=== PATIENT | male | born 1955 | race African-American/Black ===

== ENCOUNTER 2018-01-04 14:33 | Outpatient (CLI) | payer MEDICARE ==
[2018-01-04 16:36] LABS: #Basophils 0.1 thou/uL (0.0-0.2); #Eosinphils 0.3 thou/uL (0.0-0.7); #Lymphocytes 1.6 thou/uL (1.20-3.40); #Monocytes 0.8 thou/uL (0.11-0.59); #Neutrophils 4.5 thou/uL (1.40-6.50); %Basophils 1.1 % (0.0-1.0); %Eosinophils 3.8 % (0.0-10.0); %Lymphocytes 21.7 % (21.0-51.0); %Monocytes 11.1 % (0.0-10.0); %Neutrophils 62.4 % (42.0-75.0); Hemoglobin 12.1 g/dL (14.0-18.0); Mean Corpuscular HGB CONC 32.4 g/dL (32.0-36.0); Mean Corpuscular Hemoglobin 28.8 pg (27.0-31.0); Mean Corpuscular Volume 88.7 fl (80.0-94.0); Mean Platelet Volume 7.8 fL (7.4-10.4); Platelet Count 300 thou/uL (130-400); RBC Distribution Width 14.3 % (11.5-14.5); Red Blood Cell (RBC) Count 4.21 mill/uL (4.70-6.10); White Blood Cell (WBC) Count 7.2 thou/uL (4.8-10.8)
[2018-01-04 16:56] LABS: Anion Gap 16 mmol/L (10-20); BUN (Urea Nitrogen) 22 mg/dL (8.4-25.7); Calc. Creatinine Clearance 0 mL/min (70-130); Calcium 9.9 mg/dL (7.8-10.44); Carbon Dioxide 29 mmol/L (23-31); Chloride 96 mmol/L (98-107); Estimated GFR-MDRD 14; Glucose 77 mg/dL (80-115); Sodium 137 mmol/L (136-145)
--- NOTE | 2018-05-10 11:23 | EKG ---
Test Reason : Blood Pressure : / mmHG Vent. Rate : 073 BPM Atrial Rate : 073 BPM P-R Int : 190 ms QRS Dur : 108 ms QT Int : 410 ms P-R-T Axes : 069 268 067 degrees QTc Int : 451 ms Normal sinus rhythm Possible Left atrial enlargement Right superior axis deviation Incomplete right bundle branch block Right ventricular hypertrophy Left ventricular hypertrophy Abnormal ECG Confirmed by VALERIA DONALDSON MD ([id number]) on 05/10/2018 11:23:08 AM Referred By: SHAE Confirmed By:VALERIA DONALDSON MD
== END 2018-01-04 14:34 | disposition home or self-care (01) ==
LOC: LABBT 14:33
PROVIDERS: ATTEND Surgery
DX: Z01.812 Encounter for preprocedural laboratory examination (principal); N18.6 End stage renal disease; K42.9 Umbilical hernia without obstruction or gangrene
CPT/HCPCS: 80048; 85025; 93005; 93010

== ENCOUNTER 2018-01-10 08:23 | Day surgery (SDC) | payer MEDICARE ==
[2018-01-04 15:04] VITALS: BMI 24.0
[2018-01-10] MEDS ORDERED: CEFAZOLIN/Water 2 GM/20 ML SYRINGE ONE (10:42)
[2018-01-10] MEDS ORDERED: Lidocaine 1% PF 5 ML VIAL ONE (12:50)
[2018-01-10] MEDS ORDERED: Ondansetron PF 4 MG/2 ML Vial ONE ×2 (12:50→13:11)
[2018-01-10] MEDS ORDERED: Dexamethasone 20 MG/5 ML VIAL ONE (12:50)
[2018-01-10] MEDS ORDERED: PROPOFOL 200 MG/20 ML VIAL ONE (12:50)
[2018-01-10] MEDS ORDERED: Glycopyrrolate 0.2 MG/ML 5 ML SYRINGE ONE (12:50)
[2018-01-10] MEDS ORDERED: Heparin 10,000 UNITS/1 ML VIAL ONE (13:08)
[2018-01-10] MEDS ORDERED: Bupivacaine/Epinephrine 0.25% 30 ML VIAL ONE (13:08)
[2018-01-10] MEDS ORDERED: Fentanyl 100 MCG/2 ML VIAL ONE ×2 (13:11→15:24)
[2018-01-10] MEDS ORDERED: HYDROcodone/Acetaminophen 5/325 mg Tablet ONE (16:44)
--- NOTE | 2018-01-14 16:13 | PDOC.OP ---
Operative Note - Operative Note Operative Note: PROCEDURE: Laparoscopic peritoneal dialysis catheter placement and umbilical hernia repair with mesh. DATE OF PROCEDURE: 01/10/2018 SURGEON: Seng Abdullahi M.D. PREOPERATIVE DIAGNOSES: Umbilical hernia, end-stage renal failure POSTOPERATIVE DIAGNOSIS: Umbilical hernia, end-stage renal failure HISTORY: Patient with symptomatic umbilical hernia for which operative repair with mesh is recommended. PROCEDURE IN DETAIL: After informed consent was obtained and appropriate preoperative antibiotics were administered the patient was taken to the operating room and placed in the supine position. General anesthesia by laryngeal mask airway was administered and the abdomen was prepped and draped in the standard sterile fashion. Local anesthesia was infused the skin and subcutaneous tissue surrounding the umbilicus. A periumbilical incision was made and dissection carried down to the hernia sac which was dissected free of the overlying dermis and the surrounding subcutaneous tissues. The hernia was traced down to the fascia which was cleared circumferentially. The hernia sac was opened and a 5 mm trocar placed into the peritoneal cavity. There were no significant adhesions in the abdominal cavity. Local anesthesia was infused to the skin and subcutaneous tissues at the subcostal location and a trocar was placed at that location. The patient was placed in Trendelenburg and the small intestine easily was drawn up out of the pelvis. The patient was noted to have a deep sulcus adjacent to the rectum suitable for placement of the catheter and the omentum did not seem to reach down to the pelvis. The inferior edge of the posterior rectus sheath was identified and local anesthesia infused the skin and subcutaneous tissues overlying this location. An 8 mm trocar was tunneled superiorly medially and then down through the posterior rectus sheath near its inferior edge and the peritoneal dialysis catheter advanced through the trocar. The catheter was held in place with the inner cuff just inside the rectus sheath as the trocar was withdrawn. The end of the catheter was placed down into the rectal cul-de-sac and saline infused into the abdominal cavity. The catheter was placed to gravity and easily drained the fluid. The right upper quadrant trocar was then withdrawn and a 0 Vicryl suture on a GraNee needle used to close the fascial incision, but the suture was not tied down. The trocar was replaced at that location under direct laparoscopic vision. The umbilical trocar was then used to desufflate the abdomen and blunt digital dissection used to create a preperitoneal space for mesh placement. A 4.3 cm ventral X mesh was placed through the fascial defect and laparoscopically confirmed to be lying flat in the preperitoneal space. The fascial edges were then reapproximated with interrupted and [id number] Ethibond sutures incorporating the central strap into the closure. The sutures were secured and the excess strap trimmed down to the level of the fascia. The subcutaneous tissues were reapproximated with 3-0 Monocryl suture and the skin was closed with 4-0 subcuticular Monocryl suture. The gas was then desufflated through the right upper quadrant trocar which was then removed and the previously placed transfascial sutures secured. The laparoscopic incision was closed with 4-0 subcuticular Monocryl suture and the skin around the peritoneal dialysis catheter was snugged up with a 4-0 Monocryl subcuticular suture as well. Dermabond dressings were placed and once these were dry a cotton ball and Tegaderm dressing was placed at the umbilicus and a sterile gauze dressing at the PD catheter site.. The patient was extubated and taken to the recovery room in good condition. There were no complications. There were no specimens. Estimated blood loss was minimal.
== END 2018-01-10 17:45 | disposition home or self-care (01) ==
LOC: SDC 08:23
PROVIDERS: ATTEND Surgery
PROC: 0WUF4JZ Supplement Abdominal Wall with Synthetic Substitute, Percutaneous Endoscopic Approach (ICD-10-PCS; principal; 2018-01-10)
PROC: 0WHG43Z Insertion of Infusion Device into Peritoneal Cavity, Percutaneous Endoscopic Approach (ICD-10-PCS; 2018-01-10)
DX: K42.9 Umbilical hernia without obstruction or gangrene (principal); F17.210 Nicotine dependence, cigarettes, uncomplicated; I13.2 Hypertensive heart and chronic kidney disease with heart failure and with stage 5 chronic kidney disease, or end stage renal disease; N18.6 End stage renal disease; I50.9 Heart failure, unspecified; D63.1 Anemia in chronic kidney disease; Z79.82 Long term (current) use of aspirin; Z79.899 Other long term (current) drug therapy; Z91.048 Other nonmedicinal substance allergy status; Z99.2 Dependence on renal dialysis
CPT/HCPCS: 96374; J0131; J1100; J1644; J2001; J2405; J2704; J3010

== ENCOUNTER 2018-09-23 18:09 | Emergency (ER) | payer MEDICARE ==
[2018-09-23 18:56] LABS: #Basophils 0.1 thou/uL (0.0-0.2); #Eosinphils 0.1 thou/uL (0.0-0.7); #Lymphocytes 1.8 thou/uL (1.20-3.40); #Monocytes 0.6 thou/uL (0.11-0.59); #Neutrophils 7.7 thou/uL (1.40-6.50); %Basophils 0.7 % (0.0-1.0); %Eosinophils 0.5 % (0.0-10.0); %Lymphocytes 17.3 % (21.0-51.0); %Monocytes 5.8 % (0.0-10.0); %Neutrophils 75.7 % (42.0-75.0); Hemoglobin 11.8 g/dL (14.0-18.0); Mean Corpuscular HGB CONC 31.4 g/dL (32.0-36.0); Mean Corpuscular Hemoglobin 26.8 pg (27.0-31.0); Mean Corpuscular Volume 85.3 fL (78.0-98.0); Mean Platelet Volume 8.6 fL (7.4-10.4); Platelet Count 265 thou/uL (130-400); RBC Distribution Width 15.6 % (11.5-14.5); Red Blood Cell (RBC) Count 4.41 mill/uL (4.70-6.10); White Blood Cell (WBC) Count 10.2 thou/uL (4.8-10.8)
[2018-09-23 19:01] LABS: ALT (SGPT) 9 U/L (8-55); AST (SGOT) 9 U/L (5-34); Albumin 3.8 g/dL (3.4-4.8); Alkaline Phosphatase 76 U/L (40-150); Anion Gap 16 mmol/L (10-20); BUN (Urea Nitrogen) 93 mg/dL (8.4-25.7); Bilirubin, Total 0.4 mg/dL (0.2-1.2); Calc. Creatinine Clearance 0 mL/min (70-130); Calcium 7.9 mg/dL (7.8-10.44); Carbon Dioxide 26 mmol/L (23-31); Chloride 99 mmol/L (98-107); Estimated GFR-MDRD 6; Globulin 3.8 g/dL (2.4-3.5); Glucose 133 mg/dL (80-115); Lipase 95 U/L (8-78); Protein, Total 7.6 g/dL (5.8-8.1); Sodium 138 mmol/L (136-145)
--- NOTE | 2018-09-23 20:35 | ULT ---
RIGHT UPPER QUADRANT ULTRASOUND: 09/23/2018 PROVIDED CLINICAL HISTORY: Right upper quadrant pain. FINDINGS: The visualized portions of the pancreas and IVC appear normal. The liver demonstrates no evidence fo r mass or intrahepatic biliary ductal dilatation. The common duct is not dilated. The gallbladder d emonstrates no stones, wall thickening, or pericholecystic fluid. Sonographic Watkins sign is documen imani as negative. The right kidney appears echogenic and demonstrates hydronephrosis, moderate to sev ere. Free intraperitoneal fluid is seen, the etiology and significance of which are uncertain, but m ay reflect peritoneal dialysis. IMPRESSION: 1. Right-sided hydronephrosis. Consider CT if indicated. 2. Free intraperitoneal fluid, which could reflect the provided clinical history of peritoneal dialy sis. POS: [facility]
--- NOTE | 2018-09-23 22:30 | CT ---
CT ABDOMEN AND PELVIS WITHOUT CONTRAST: 09/23/2018 PROVIDED CLINICAL HISTORY: Abdominal pain. COMPARISON: No CT comparisons. FINDINGS: The visualized lung bases are free of significant opacity. There is right-sided hydronephrosis, as seen on recent ultrasound, with mild right hydroureter. The course of the right ureter is not entirely visualized due to being surrounded by fluid density within the lower abdomen and upper pelvis, related to free intraperitoneal fluid from the dialysis catheter . There is no evidence for a ureteral or bladder calculus. The urinary bladder is decompressed and not well evaluated. No evidence for renal calculi. The solid abdominal organs are suboptimally eval uated in the absence of IV contrast material but demonstrate an otherwise unremarkable, unenhanced CT appearance. There is no evidence for bowel obstruction. Free intraperitoneal fluid related to a peritoneal dialy sis catheter is seen. No evidence significant for intraperitoneal air or localized inflammatory fat stranding. Vascular calcifications are noted involving the abdominal aorta. The osseous structures demonstrate no concerning lytic or blastic lesions. IMPRESSION: 1. Right-sided hydronephrosis, the etiology of which is not certain on the basis of this study. The re is no evidence for ureteral or bladder calculus. 2. Chronic findings as above. POS: [facility]
[2018-09-24 10:24] LABS: Body Fluid Source Dialysate Fluid; Tube # EDTA
[2018-09-24 10:26] LABS: BF Color Colorless; BF RBC Count - Manual 0 /cumm; BF WBC/Nonhematics Ct. - Manua 1 /cumm; Clarity Clear (Clear)
== END 2018-09-23 22:35 | disposition home or self-care (01) ==
LOC: ERS 18:09
DX: R10.31 Right lower quadrant pain (principal); I11.0 Hypertensive heart disease with heart failure; I50.9 Heart failure, unspecified
CPT/HCPCS: 36415; 74176; 76705; 80053; 83605; 83690; 85025; 87040; 87070; 87205; 89051

== ENCOUNTER 2018-11-11 10:09 | Outpatient (CLI) | payer MEDICARE ==
[2018-11-11] MEDS ORDERED: Iopamidol 370 76% 100 ML VIAL ONE (10:42)
--- NOTE | 2018-11-11 13:37 | CT ---
CT OF THE ABDOMEN AND PELVIS WITH AND WITHOUT IV CONTRAST: INDICATION: History of unexplained hydronephrosis with right flank pain and renal failure. The patient is receiv ing peritoneal dialysis nightly. CONTRAST: 7 cc of Isovue 370. COMPARISON: CT of the abdomen and pelvis dated 09/23/2018. FINDINGS: Again seen is a peritoneal dialysis catheter within the right hemiabdomen. There is a mild amount of peritoneal dialysate within the abdomen as well as within the pelvis. Previously seen right sided hydronephrosis has resolved. There are multiple small cysts seen within both kidneys. No definite urothelial lesion is evident. There is wall thickening involving the blad rachel which is nonspecific. The prostate is enlarged measuring approximately 6.5 cm. There is a moderate amount of retained stoo l within the colon. There is sever vascular calcification involving the abdominopelvic vasculature. There is a small hiatal hernia. No focal hepatic lesion is evident. The pancreas, adrenal glands, a nd spleen appear within normal limits. There is advanced degenerative disk disease at L5-S1. There is mild diffuse osteopenia. IMPRESSION: 1. Resolution of the previously seen right-sided hydronephrosis. No renal or ureteral calculus evid ent. No gross urothelial lesion is noted. 2. Nonspecific wall thickening involving the bladder may reflect sequelae of chronic bladder outlet obstruction; however, cystitis is not entirely excluded. Recommend correlation. 3. Peritoneal dialysis catheter. 4. Multiple small subcentimeter cysts within both kidneys. 5. Hiatal hernia. 6. Mild amount of retained stool within the colon. POS: [facility]
== END 2018-11-11 10:10 | disposition home or self-care (01) ==
LOC: BICCT 10:09
PROVIDERS: ATTEND Urology
DX: N18.6 End stage renal disease (principal); N13.30 Unspecified hydronephrosis; N28.1 Cyst of kidney, acquired; K44.9 Diaphragmatic hernia without obstruction or gangrene; K59.00 Constipation, unspecified; N32.89 Other specified disorders of bladder; Z99.2 Dependence on renal dialysis
CPT/HCPCS: 74178; Q9967

== ENCOUNTER 2019-03-27 06:53 | Day surgery (SDC) | payer MEDICARE ==
[2019-03-26 12:06] VITALS: BMI 24.4
--- NOTE | 2019-03-27 11:10 | OP ---
DATE OF PROCEDURE: 03/27/2019 CRISIS SPECIALIST SURGEON: None. PROCEDURES: 1. Esophagogastroduodenoscopy, diagnostic. 2. Colonoscopy with snare polypectomy. INDICATIONS: 1. Anemia. 2. History of colon polyps, with last colonoscopy 3 years ago. 3. Prior history of H pylori gastritis and peptic ulcer disease. MEDICATIONS: See Anesthesia record. FINDINGS: After discussion of the risks, benefits, and alternatives of the procedure, informed consent was obtained and witnessed. Pre-endoscopic cardiopulmonary examination was satisfactory. Time-out was performed before sedation was achieved. Sedation was achieved with Anesthesia's assistance in the endoscopy unit. A Pentax adult upper endoscope was placed into the oropharynx and passed through the cricopharyngeus under direct visualization. The esophageal mucosa appeared normal throughout with a normal-appearing Z-line. The endoscope was advanced into the stomach. Forward and retroflexed views of the entire gastric mucosa were obtained. The gastric mucosa appears normal. The endoscope was advanced through the pylorus and into the first and second portions of the duodenum, which also appeared normal. The upper endoscope was completely withdrawn and the patient was repositioned. Digital rectal exam was performed, which was unremarkable. A Pentax adult colonoscope was inserted into the anus and passed forward to the cecum in the usual fashion. The cecal base was identified by the appendiceal orifice as well as the ileocecal valve. The terminal ileum was intubated and the ileal mucosa appeared normal. The colonoscope was slowly withdrawn in a gradual and circumferential manner with careful examination of the entire colonic mucosa. The quality of the prep was good. In the sigmoid colon, there was a single diminutive polyp measuring 2 mm in diameter. This was completely removed with cold snare and retrieved for pathology. The remainder of the colonic mucosa appeared completely normal. Retroflexion in the rectum showed no abnormalities. The colonoscope was completely withdrawn and the patient allowed to recover. The patient tolerated the procedure well. There were no immediate postprocedure complications. IMPRESSION: 1. Normal esophagogastroduodenoscopy. 2. 2-mm sigmoid colon polyp, completely removed with cold snare and retrieved for pathology. 3. Otherwise normal colonoscopy to the terminal ileum. RECOMMENDATIONS: 1. Follow up pathology on the sigmoid colon polyp. 2. Repeat colonoscopy for surveillance in 5 years. 3. Continue current medications including daily multivitamin with folic acid. We advised the patient to get at least 400 mcg of folic acid daily. Note, recent labs showed mixed iron studies, but low folic acid level. 4. Follow up in GI clinic as needed. Job ID: [id number]
[2019-03-27] MEDS ORDERED: Lidocaine 1% PF 5 ML VIAL ONE (13:04)
[2019-03-27] MEDS ORDERED: PROPOFOL 200 MG/20 ML VIAL ONE (13:04)
== END 2019-03-27 11:06 | disposition home or self-care (01) ==
LOC: SDC 06:53
PROVIDERS: ATTEND Internal Medicine
PROC: 0DJ08ZZ Inspection of Upper Intestinal Tract, Via Natural or Artificial Opening Endoscopic (ICD-10-PCS; principal; 2019-03-27)
PROC: 0DBN8ZX Excision of Sigmoid Colon, Via Natural or Artificial Opening Endoscopic, Diagnostic (ICD-10-PCS; 2019-03-27)
DX: D64.9 Anemia, unspecified (principal); K63.5 Polyp of colon; K21.9 Gastro-esophageal reflux disease without esophagitis; N18.6 End stage renal disease; I50.9 Heart failure, unspecified; Z86.010 Personal history of colon polyps; Z86.73 Personal history of transient ischemic attack (TIA), and cerebral infarction without residual deficits; Z79.82 Long term (current) use of aspirin; Z79.899 Other long term (current) drug therapy; Z91.010 Allergy to peanuts; Z91.011 Allergy to milk products; Z91.040 Latex allergy status; Z91.048 Other nonmedicinal substance allergy status; Z99.2 Dependence on renal dialysis
CPT/HCPCS: 88305; J2001; J2704

== ENCOUNTER 2020-02-23 07:15 | Outpatient (CLI) | payer MEDICARE, OTHER | END 2020-02-23 07:16 | disposition home or self-care (01) | LOC: LABBT 07:15 | PROVIDERS: ATTEND Ophthalmology Retina Specialist | DX: Z01.812 Encounter for preprocedural laboratory examination (principal); Z11.59 Encounter for screening for other viral diseases; H35.342 Macular cyst, hole, or pseudohole, left eye; H54.7 Unspecified visual loss | CPT/HCPCS: 87635; U0003 ==

== ENCOUNTER → 2020-02-26 | Day surgery (SDC) | payer MEDICARE ==
[2020-02-19 14:28] VITALS: BMI 24.4
[~2020-02-26] MED LIST: Bupivacaine PF 0.75% SDV 10 ML ONE; CEFAZOLIN 1 GM VIAL ONE; Cyclopentolate 1% Opth Drop 2 ML BOT ONE; Fentanyl 100 MCG/2 ML VIAL ONE; Fluorouracil 100 MG, Enoxaparin Sodium 25 MG, EPINEPHrine 0.3 MG in Ophthalmic Irrigati... IRR SCH; Indocyanine Green 25 MG/10 ML VIAL ONE; Lidocaine 1% PF 5 ML VIAL ONE; Lidocaine 4% PF 5 ML AMP ONE; Midazolam HCl 2 mg/2 ml Vial ONE; PROPOFOL 20 ML ONE; PROPOFOL 200 MG/20 ML VIAL ONE; Phenylephrine 2.5% Ophth Soln 5 ML BOT ONE; Tobramycin/Dexamethasone Ophth Oint 3.5 GM TUBE ONE; Triamcinolone 40 MG/ML VIAL ONE
--- NOTE | 2020-02-27 12:39 | OP ---
DATE OF PROCEDURE: 02/26/2020 PREOPERATIVE DIAGNOSIS: Macular hole, left eye. POSTOPERATIVE DIAGNOSIS: Macular hole, left eye. PROCEDURES: Pars plana vitrectomy; internal limiting membrane peel, left eye. ANESTHESIA: Local with monitored anesthesia care. DESCRIPTION OF PROCEDURE: The patient was identified in the preoperative holding area. Appropriate informed consent for the planned surgical procedure on the left eye had been obtained. The patient was transported to the operative suite. Appropriate cardiopulmonary monitoring was established. Local anesthesia obtained using retrobulbar modified van Lint lid block using 50:50 mixture of 4% lidocaine and 0.75% bupivacaine. The patient was prepped in usual sterile manner for ophthalmic surgery of left eye. Lid speculum was placed in left eye. A 27-gauge trocar was placed in conjunctiva and sclera superotemporally, inferotemporally, and supranasally. Infusion line was placed inferotemporally. Light pipe vitreous cutter was inserted to the eye. Core vitrectomy was performed. Posterior hyaloid face was elevated, peeled across the macula. Indocyanine green dye was infused on the posterior pole identifying the internal limiting membrane. This was elevated and peeled in multiple fragments using end-gripping forceps. Indirect ophthalmoscopy was used to exam the retina 360 degrees. No holes, breaks, or tears were identified. Complete air-fluid exchange was performed and 10 minutes being left for fluid to drain posteriorly. 15% of propane gas was infused into the eye. Trocars were removed. Eye was noted to retain pressure well. Retrobulbar Kenalog and sequential Ancef were placed. Antibiotic ointment was placed. Eye was patched and shielded. The patient was taken to postop recovery unit in good condition, having suffered no immediate perioperative complications. The patient was instructed to keep patch and shield on. Avoid flat on back positioning. Avoid lifting or bending. Followup appointment with Dr. Yo. Job ID: [id number]
== END | disposition home or self-care (01) ==
LOC: SDC 10:56
PROVIDERS: ATTEND Ophthalmology Retina Specialist
PROC: 08T53ZZ Resection of Left Vitreous, Percutaneous Approach (ICD-10-PCS; principal; 2020-02-26)
PROC: 08NF3ZZ Release Left Retina, Percutaneous Approach (ICD-10-PCS; 2020-02-26)
DX: H35.342 Macular cyst, hole, or pseudohole, left eye (principal); Z79.899 Other long term (current) drug therapy; Z91.048 Other nonmedicinal substance allergy status
CPT/HCPCS: 67025; J0171; J0690; J1650; J2001; J2250; J2704; J3010; J3301; J3490; J9190

== ENCOUNTER 2020-05-21 15:16 | Outpatient (CLI) | payer MEDICARE ==
--- NOTE | 2020-05-21 15:50 | RAD ---
Radiograph left hip 2 views: HISTORY: 64-year-old male with left hip pain FINDINGS: No fracture or dislocation. Femoral head contour maintained. No subcapital or acetabular osteophytes. No erosions. No high-grade DJD of the left SI joint. IMPRESSION: Negative
== END 2020-05-21 15:17 | disposition home or self-care (01) ==
LOC: BICRAD 15:16
PROVIDERS: ATTEND Internal Medicine Nephrology
DX: M25.552 Pain in left hip (principal)

== ENCOUNTER 2021-01-25 16:18 | Outpatient (CLI) | payer MEDICARE | END 2021-01-25 16:19 | disposition home or self-care (01) | LOC: BICRAD 16:18 | PROVIDERS: ATTEND Nurse Practitioner Family | DX: R06.02 Shortness of breath (principal) | CPT/HCPCS: 71046 ==

== ENCOUNTER 2021-05-10 11:09 | Inpatient (IN) | payer MEDICARE ==
[2021-05-10 12:23] LABS: #Eosinphils 0.1 thou/uL (0.0-0.7); #Lymphocytes 1.4 thou/uL (1.20-3.40); #Neutrophils 16.2 thou/uL (1.40-6.50); %Basophils 0.2 % (0.0-1.0); %Eosinophils 0.4 % (0.0-10.0); %Lymphocytes 6.9 % (21.0-51.0); %Monocytes 10.1 % (0.0-10.0); %Neutrophils 82.5 % (42.0-75.0); Hemoglobin 10.6 g/dL (14.0-18.0); Mean Corpuscular HGB CONC 31.7 g/dL (32.0-36.0); Mean Corpuscular Volume 85.2 fL (78.0-98.0); Mean Platelet Volume 8.1 fL (7.4-10.4); Platelet Count 286 thou/uL (130-400); RBC Distribution Width 16.6 % (11.5-14.5); Red Blood Cell (RBC) Count 3.91 mill/uL (4.70-6.10); White Blood Cell (WBC) Count 19.7 thou/uL (4.8-10.8)
[2021-05-10 12:42] LABS: ALT (SGPT) Less than 7 U/L (8-55); AST (SGOT) 6 U/L (5-34); Albumin 3.2 g/dL (3.4-4.8); Alkaline Phosphatase 64 U/L (40-110); Anion Gap 20 mmol/L (10-20); BUN (Urea Nitrogen) 73 mg/dL (8.4-25.7); Bilirubin, Total 0.5 mg/dL (0.2-1.2); Calc. Creatinine Clearance 0 mL/min (70-130); Calcium 9.3 mg/dL (7.8-10.44); Carbon Dioxide 27 mmol/L (23-31); Chloride 90 mmol/L (98-107); Globulin 3.9 g/dL (2.4-3.5); Glucose 91 mg/dL (80-115); Potassium 4.6 mmol/L (3.5-5.1); Protein, Total 7.1 g/dL (5.8-8.1); Sodium 132 mmol/L (136-145)
[2021-05-10] MEDS ORDERED: cefTRIAXone\\ROCEPHIN 2 GM VIAL ONE (13:05)
[2021-05-10] MEDS ORDERED: Famotidine 20 MG TAB PO SCH (13:30)
[2021-05-10] MEDS ORDERED: Ondansetron ODT 4 MG TAB PO PRN (13:30)
[2021-05-10] MEDS ORDERED: Senokot S 8.6-50 MG TAB PO PRN (13:30)
[2021-05-10] MEDS ORDERED: Acetaminophen 325 MG TAB PO PRN (13:30)
[2021-05-10 15:57] LABS: SARS-CoV-2 NAA Rapid Test Not Detected (NotDetected)
[2021-05-10] MEDS ORDERED: CEFEPIME FS SCH (19:30)
[2021-05-10] MEDS ORDERED: ADMIXTURE FEE CHEMO FS SCH ×2 (19:30→20:30)
[2021-05-10] MEDS ORDERED: VANCOMYCIN HCL FS SCH ×2 (19:30→20:30)
[2021-05-10] MEDS ORDERED: GENTAMICIN FS SCH (20:30)
[2021-05-10 23:00] LABS: RBC Count-Automated (BF) 0 /cu.mm; WBC/Nucleated-Auto (BF) 333 uL
[2021-05-10 23:23] LABS: Body Fluid Source Peritoneal Fluid; Tube # EDTA
[2021-05-10 23:25] LABS: BF Color Colorless; Clarity Clear (Clear)
[2021-05-10 23:34] LABS: BF Segmented Neutrophils 13 %; Cell Count Non Hematic 86 %; Eosinophils 1 %
[2021-05-11 00:27] VITALS: BMI 27.8
[2021-05-11 06:07] LABS: Hemoglobin 10.5 g/dL (14.0-18.0); Mean Corpuscular HGB CONC 32.8 g/dL (32.0-36.0); Mean Corpuscular Hemoglobin 27.8 pg (27.0-31.0); Mean Corpuscular Volume 84.8 fL (78.0-98.0); Mean Platelet Volume 8.4 fL (7.4-10.4); Platelet Count 283 thou/uL (130-400); RBC Distribution Width 16.6 % (11.5-14.5); Red Blood Cell (RBC) Count 3.77 mill/uL (4.70-6.10); White Blood Cell (WBC) Count 20.2 thou/uL (4.8-10.8)
[2021-05-11 06:27] LABS: Albumin 2.9 g/dL (3.4-4.8); Anion Gap 21 mmol/L (10-20); BUN (Urea Nitrogen) 79 mg/dL (8.4-25.7); BUN/Creatinine Ratio 3.91; Calc. Creatinine Clearance 5 mL/min (70-130); Calcium 9.4 mg/dL (7.8-10.44); Carbon Dioxide 24 mmol/L (23-31); Chloride 88 mmol/L (98-107); Glucose 87 mg/dL (80-115); Phosphorus 5.3 mg/dL (2.3-4.7); Potassium 4.4 mmol/L (3.5-5.1); Sodium 129 mmol/L (136-145)
[2021-05-11 06:42] LABS: Hypochromia SLIGHT = 6-15 cells (100X) (0-5/hpf); Lymphocytes 13 % (21-51); MDiff Complete? YES; Monocytes 9 % (0-10); Neutrophil 78 % (42-75); Platelet Morphology Comment Appears Adequate
[2021-05-11] MEDS ORDERED: Hydrocerin (Eucerin) Cream 120 gm Jar TOP PRN (07:23)
[2021-05-11] MEDS ORDERED: Artificial Tear Sol 15 ML BOT EA EYE PRN (07:23)
[2021-05-11] MEDS ORDERED: Calcium Carbonate 500 MG ChewTAB PO PRN (07:23)
[2021-05-11] MEDS ORDERED: Ondansetron PF 4 MG/2 ML Vial IVP PRN (07:23)
[2021-05-11] MEDS ORDERED: GUAIFENESIN SF SOLN 200 MG/10 ML UDCUP PO PRN (07:23)
[2021-05-11] MEDS ORDERED: Bisacodyl 5 MG TAB PO PRN (07:23)
[2021-05-11] MEDS ORDERED: Loratadine 10 MG TAB PO PRN (07:23)
[2021-05-11] MEDS ORDERED: hydrALAZINE 20 MG/ML VIAL SLOW IVP PRN (07:23)
[2021-05-11] MEDS ORDERED: Sodium Chloride 0.65% Nasal 44 ML BOT EA NARE PRN (07:23)
[2021-05-11] MEDS ORDERED: Zolpidem Tartrate 5 MG TAB PO PRN (07:23)
[2021-05-11] MEDS ORDERED: Benzonatate 100 MG CAP PO PRN (07:23)
[2021-05-11] MEDS ORDERED: Loperamide HCl 2 MG CAP PO PRN (07:23)
[2021-05-11] MEDS ORDERED: Cepastat Lozenges 1 LOZ PO PRN (07:23)
[2021-05-11] MEDS: Folic Acid/Vit B Comp W-C PO SCH (09:03)
[2021-05-11] MEDS: Sevelamer Carbonate 800 MG TAB PO SCH ×3 (09:03→17:18)
[2021-05-11] MEDS: hydrALAZINE 25 MG TAB PO SCH ×2 (09:03→21:53)
[2021-05-11] MEDS: Metoprolol Tartrate 50 MG TAB PO SCH ×2 (09:03→21:53)
[2021-05-11 14:28] LABS: Clarity Extra Turbid (Clear)
[2021-05-11 14:29] LABS: Bilirubin Unable to Interpret (Negative); Blood, Urine Unable to Interpret (Negative); Glucose, Urine (Dipstick) Unable to Interpret mg/dL (Negative); Ketone, Urine Unable to Interpret mg/dL (Negative); Leukocyte Unable to Interpret Leu/uL (Negative); Nitrite Unable to Interpret (Negative); Protein, Urine (Dipstick) Unable to Interpret mg/dL (Neg-Trace); Urobilinogen UNABLE TO INTERPRET mg/dL (Less than 2)
[2021-05-11 14:30] LABS: Bacteria/HPF 2+ HPF (None Seen); Squamous Epithelial None Seen HPF (0-3); WBC/HPF Greater than 50 HPF (0-3)
[2021-05-11 14:32] LABS: Urine Culture Reflex Yes Yes
[2021-05-11] MEDS: Atorvastatin Calcium 10 MG TAB PO SCH (21:53)
[2021-05-11] MEDS: Terazosin HCl 1 MG CAP PO SCH (21:53)
[2021-05-11] MEDS: Heparin 5,000 UNITS/ML VIAL SC SCH (21:54)
[2021-05-11] MEDS: HYDROcodone/Acetaminophen 5/325 mg Tablet PO PRN (22:26)
[2021-05-12 06:45] LABS: #Basophils 0.1 thou/uL (0.0-0.2); #Eosinphils 0.4 thou/uL (0.0-0.7); #Lymphocytes 1.4 thou/uL (1.20-3.40); #Monocytes 1.7 thou/uL (0.11-0.59); #Neutrophils 11.7 thou/uL (1.40-6.50); %Basophils 0.5 % (0.0-1.0); %Eosinophils 2.7 % (0.0-10.0); %Lymphocytes 9.1 % (21.0-51.0); %Monocytes 11.2 % (0.0-10.0); %Neutrophils 76.5 % (42.0-75.0); Hemoglobin 10.3 g/dL (14.0-18.0); Mean Corpuscular HGB CONC 31.6 g/dL (32.0-36.0); Mean Corpuscular Hemoglobin 26.9 pg (27.0-31.0); Mean Corpuscular Volume 85.3 fL (78.0-98.0); Mean Platelet Volume 8.4 fL (7.4-10.4); Platelet Count 306 thou/uL (130-400); RBC Distribution Width 16.8 % (11.5-14.5); Red Blood Cell (RBC) Count 3.83 mill/uL (4.70-6.10); White Blood Cell (WBC) Count 15.3 thou/uL (4.8-10.8)
[2021-05-12 07:01] LABS: Anion Gap 19 mmol/L (10-20); BUN (Urea Nitrogen) 69 mg/dL (8.4-25.7); Calc. Creatinine Clearance 5 mL/min (70-130); Calcium 9.7 mg/dL (7.8-10.44); Carbon Dioxide 28 mmol/L (23-31); Chloride 87 mmol/L (98-107); Glucose 103 mg/dL (80-115); Potassium 3.9 mmol/L (3.5-5.1); Sodium 130 mmol/L (136-145)
[2021-05-12] MEDS: HYDROcodone/Acetaminophen 5/325 mg Tablet PO PRN ×2 (07:30→21:34)
[2021-05-12] MEDS: Metoprolol Tartrate 50 MG TAB PO SCH ×2 (09:00→20:01)
[2021-05-12] MEDS ORDERED: Non-Formulary Item 1 EACH (Calcitriol [Calcitriol] 0.5 MCG Capsule) PO SCH (09:00)
[2021-05-12] MEDS: Sevelamer Carbonate 800 MG TAB PO SCH ×3 (09:14→17:41)
[2021-05-12] MEDS: Heparin 5,000 UNITS/ML VIAL SC SCH ×2 (09:15→20:06)
[2021-05-12] MEDS: hydrALAZINE 25 MG TAB PO SCH ×2 (09:15→20:02)
[2021-05-12] MEDS: Calcitriol 0.25 MCG CAP PO SCH (09:15)
[2021-05-12] MEDS: Folic Acid/Vit B Comp W-C PO SCH (09:16)
[2021-05-12] MEDS: Cefepime 1 GM in Sodium Chloride 0.9% 100 ML IVPB SCH (12:42)
[2021-05-12] MEDS: Terazosin HCl 1 MG CAP PO SCH (20:01)
[2021-05-12] MEDS: Atorvastatin Calcium 10 MG TAB PO SCH (20:01)
[2021-05-13 06:45] LABS: #Basophils 0.1 thou/uL (0.0-0.2); #Eosinphils 0.5 thou/uL (0.0-0.7); #Lymphocytes 1.1 thou/uL (1.20-3.40); #Monocytes 1.4 thou/uL (0.11-0.59); #Neutrophils 9.5 thou/uL (1.40-6.50); %Basophils 0.5 % (0.0-1.0); %Lymphocytes 8.5 % (21.0-51.0); Hemoglobin 10.1 g/dL (14.0-18.0); Mean Corpuscular HGB CONC 31.8 g/dL (32.0-36.0); Mean Corpuscular Hemoglobin 27.1 pg (27.0-31.0); Mean Corpuscular Volume 85.2 fL (78.0-98.0); Mean Platelet Volume 8.5 fL (7.4-10.4); Platelet Count 322 thou/uL (130-400); RBC Distribution Width 16.6 % (11.5-14.5); Red Blood Cell (RBC) Count 3.74 mill/uL (4.70-6.10); White Blood Cell (WBC) Count 12.4 thou/uL (4.8-10.8)
[2021-05-13 07:05] LABS: Anion Gap 19 mmol/L (10-20); BUN (Urea Nitrogen) 66 mg/dL (8.4-25.7); Calc. Creatinine Clearance 5 mL/min (70-130); Calcium 9.5 mg/dL (7.8-10.44); Carbon Dioxide 28 mmol/L (23-31); Chloride 87 mmol/L (98-107); Glucose 112 mg/dL (80-115); Sodium 130 mmol/L (136-145)
[2021-05-13] MEDS: Sevelamer Carbonate 800 MG TAB PO SCH ×2 (08:17→12:40)
[2021-05-13] MEDS: Calcitriol 0.25 MCG CAP PO SCH (08:18)
[2021-05-13] MEDS: Metoprolol Tartrate 50 MG TAB PO SCH (08:19)
[2021-05-13] MEDS: hydrALAZINE 25 MG TAB PO SCH (08:19)
[2021-05-13] MEDS: Folic Acid/Vit B Comp W-C PO SCH (08:19)
[2021-05-13] MEDS: Heparin 5,000 UNITS/ML VIAL SC SCH (08:19)
[2021-05-13] MEDS: HYDROcodone/Acetaminophen 5/325 mg Tablet PO PRN (08:33)
[2021-05-13] MEDS ORDERED: predniSONE 20 MG TAB PO SCH (11:30)
[2021-05-13 11:55] VITALS: BP 97/64; TEMP 98.4
[2021-05-13 12:28] LABS: CRP (Inflammatory) 20.04 mg/dL (= or < 0.5); Uric Acid 4.9 mg/dL (3.5-7.2)
[2021-05-13] MEDS: Cefepime 1 GM in Sodium Chloride 0.9% 100 ML IVPB SCH (12:45)
== END 2021-05-13 15:15 | disposition home or self-care (01) | DRG 871 ==
LOC: ERS 11:09 → SUATTDRO 11:09 → ERHOLD 13:30 → SURG A 20:17
PROVIDERS: ADMIT Family Medicine; ATTEND Internal Medicine
DX: A41.9 Sepsis, unspecified organism (principal); N18.6 End stage renal disease; N25.81 Secondary hyperparathyroidism of renal origin; I13.2 Hypertensive heart and chronic kidney disease with heart failure and with stage 5 chronic kidney disease, or end stage renal disease; E87.1 Hypo-osmolality and hyponatremia; N39.0 Urinary tract infection, site not specified; Z20.822 Contact with and (suspected) exposure to COVID-19; R31.0 Gross hematuria; D63.1 Anemia in chronic kidney disease; B96.20 Unspecified Escherichia coli [E. coli] as the cause of diseases classified elsewhere; M10.9 Gout, unspecified; E78.5 Hyperlipidemia, unspecified; I50.9 Heart failure, unspecified; Z91.048 Other nonmedicinal substance allergy status; Z82.49 Family history of ischemic heart disease and other diseases of the circulatory system; Z99.2 Dependence on renal dialysis; Z79.899 Other long term (current) drug therapy
CPT/HCPCS: 0240U; 36415; 80048; 80053; 80069; 81001; 83605; 84550; 85025; 85060; 86140; 87040; 87070; 87077; 87086; 87186; 87205; 89051; 90945; 96365; G0257; J0692; J0696; J1644; J3370; J3490; J7512

== ENCOUNTER 2021-07-11 15:04 | Outpatient (CLI) | payer MEDICARE ==
[2021-07-12 08:17] LABS: SARS-CoV-2 PCR by NAA Not Detected (NotDetected)
== END 2021-07-11 15:05 | disposition home or self-care (01) ==
LOC: LABBT 15:04
PROVIDERS: ATTEND Ophthalmology Retina Specialist
DX: Z01.812 Encounter for preprocedural laboratory examination (principal); H35.341 Macular cyst, hole, or pseudohole, right eye; Z20.822 Contact with and (suspected) exposure to COVID-19
CPT/HCPCS: U0003; U0005

== ENCOUNTER 2021-07-14 06:30 | Day surgery (SDC) | payer MEDICARE ==
[2021-07-13 14:22] VITALS: BMI 26.7
[~2021-07-14 06:30] MED LIST changes: -Bupivacaine PF 0.75% SDV 10 ML ONE; -CEFAZOLIN 1 GM VIAL ONE; -Cyclopentolate 1% Opth Drop 2 ML BOT ONE; -Fentanyl 100 MCG/2 ML VIAL ONE; -Fluorouracil 100 MG, Enoxaparin Sodium 25 MG, EPINEPHrine 0.3 MG in Ophthalmic Irrigati... IRR SCH; +Fluorouracil 100 MG, Enoxaparin Sodium 25 MG, EPINEPHrine 0.3 MG, Dextrose 50% 3 ML in ... IRR SCH; -Indocyanine Green 25 MG/10 ML VIAL ONE; -Lidocaine 1% PF 5 ML VIAL ONE; -Lidocaine 4% PF 5 ML AMP ONE; -Midazolam HCl 2 mg/2 ml Vial ONE; -PROPOFOL 20 ML ONE; -PROPOFOL 200 MG/20 ML VIAL ONE; -Phenylephrine 2.5% Ophth Soln 5 ML BOT ONE; -Tobramycin/Dexamethasone Ophth Oint 3.5 GM TUBE ONE; -Triamcinolone 40 MG/ML VIAL ONE
[2021-07-14] MEDS ORDERED: Cyclopentolate 1% Opth Drop 2 ML BOT ONE (06:55)
[2021-07-14] MEDS ORDERED: Phenylephrine 2.5% Ophth Soln 5 ML BOT ONE (06:56)
[2021-07-14] MEDS ORDERED: Midazolam HCl 2 mg/2 ml Vial ONE (07:43)
[2021-07-14] MEDS ORDERED: Fentanyl 100 MCG/2 ML VIAL ONE (07:43)
[2021-07-14] MEDS ORDERED: Enoxaparin Sodium 30 MG/0.3 ML SYRINGE ONE (07:53)
[2021-07-14] MEDS ORDERED: CEFAZOLIN 1 GM VIAL ONE (07:53)
[2021-07-14] MEDS ORDERED: Lidocaine 4% PF 5 ML AMP ONE (07:53)
[2021-07-14] MEDS ORDERED: Lidocaine 1% PF 5 ML VIAL ONE (07:53)
[2021-07-14] MEDS ORDERED: Bupivacaine PF 0.75% SDV 10 ML ONE (07:53)
[2021-07-14] MEDS ORDERED: Dextrose 50% Abboject 50 ML SYRINGE ONE (07:53)
[2021-07-14] MEDS ORDERED: Triamcinolone 40 MG/ML VIAL ONE (07:53)
[2021-07-14] MEDS ORDERED: Indocyanine Green 25 MG/10 ML VIAL ONE (07:53)
[2021-07-14] MEDS ORDERED: PROPOFOL 200 MG/20 ML VIAL ONE (07:53)
== END 2021-07-14 09:42 | disposition home or self-care (01) ==
LOC: SDC 06:30
PROVIDERS: ATTEND Ophthalmology Retina Specialist
PROC: 08T43ZZ Resection of Right Vitreous, Percutaneous Approach (ICD-10-PCS; principal; 2021-07-14)
PROC: 08NE3ZZ Release Right Retina, Percutaneous Approach (ICD-10-PCS; 2021-07-14)
DX: H35.341 Macular cyst, hole, or pseudohole, right eye (principal); N18.9 Chronic kidney disease, unspecified; Z79.899 Other long term (current) drug therapy; Z91.048 Other nonmedicinal substance allergy status; Z99.2 Dependence on renal dialysis
CPT/HCPCS: 67025; J0171; J0690; J1650; J2250; J2704; J3010; J3301; J3490; J9190

== ENCOUNTER 2021-10-28 13:19 | Outpatient (CLI) | payer MEDICARE | END 2021-10-28 13:20 | disposition home or self-care (01) | LOC: BICULT 13:19 | PROVIDERS: ATTEND Urology | DX: N18.6 End stage renal disease (principal); Z99.2 Dependence on renal dialysis; Z87.440 Personal history of urinary (tract) infections; Q61.4 Renal dysplasia | CPT/HCPCS: 76770 ==

== ENCOUNTER 2021-11-15 09:19 | Outpatient (CLI) | payer MEDICARE ==
[2021-11-15 18:40] LABS: SARS-CoV-2 PCR by NAA Not Detected (NotDetected)
== END 2021-11-15 09:20 | disposition home or self-care (01) ==
LOC: LABBT 09:19
PROVIDERS: ATTEND Surgery
DX: Z01.818 Encounter for other preprocedural examination (principal); N18.6 End stage renal disease; Z20.822 Contact with and (suspected) exposure to COVID-19
CPT/HCPCS: 71046; 93005; U0003; U0005; 93010

== ENCOUNTER 2021-11-15 23:32 | Inpatient (IN) | payer MEDICARE ==
[2021-11-16] MEDS ORDERED: Acetaminophen 650 MG Suppository PR PRN (02:54)
[2021-11-16] MEDS ORDERED: Acetaminophen 325 MG TAB PO PRN (02:54)
[2021-11-16] MEDS ORDERED: Ondansetron PF 4 MG/2 ML Vial IVP PRN (02:54)
[2021-11-16] MEDS ORDERED: Ondansetron ODT 4 MG TAB PO PRN (02:54)
[2021-11-16] MEDS: Metoprolol Tartrate 5 MG/5 ML VIAL IVP PRN ×2 (04:17→16:47)
[2021-11-16 04:33] VITALS: BMI 28.4
[2021-11-16 04:44] LABS: #Basophils 0.1 thou/uL (0.0-0.2); #Lymphocytes 2.1 thou/uL (1.20-3.40); #Monocytes 1.2 thou/uL (0.11-0.59); #Neutrophils 6.5 thou/uL (1.40-6.50); %Basophils 0.6 % (0.0-1.0); %Lymphocytes 19.3 % (21.0-51.0); %Monocytes 11.2 % (0.0-10.0); %Neutrophils 59.9 % (42.0-75.0); Anion Gap 19 mmol/L (10-20); BUN (Urea Nitrogen) 78 mg/dL (8.4-25.7); Calc. Creatinine Clearance 5 mL/min (70-130); Calcium 9.3 mg/dL (7.8-10.44); Carbon Dioxide 22 mmol/L (23-31); Chloride 96 mmol/L (98-107); Glucose 104 mg/dL (80-115); Hemoglobin 10.8 g/dL (14.0-18.0); Mean Corpuscular HGB CONC 31.8 g/dL (32.0-36.0); Mean Platelet Volume 7.9 fL (7.4-10.4); Platelet Count 294 thou/uL (130-400); Potassium 3.4 mmol/L (3.5-5.1); RBC Distribution Width 15.8 % (11.5-14.5); Red Blood Cell (RBC) Count 3.99 mill/uL (4.70-6.10); Sodium 134 mmol/L (136-145); White Blood Cell (WBC) Count 10.9 thou/uL (4.8-10.8)
[2021-11-16] MEDS ORDERED: Sevelamer Carbonate 800 MG TAB PO SCH (04:45)
[2021-11-16] MEDS ORDERED: Potassium Chloride 20 MEQ TAB PO SCH (05:30)
[2021-11-16] MEDS ORDERED: Vancomycin 1 GM in Premix Bag 1 BAG IVPB SCH ×2 (06:47→12:30)
[2021-11-16] MEDS: Sevelamer Carbonate 800 MG TAB PO SCH ×3 (07:45→18:30)
[2021-11-16] MEDS ORDERED: VANCOMYCIN 2 GRAM/400 ML BAG 2 GM in Premix Bag 1 BAG IVPB SCH (08:00)
[2021-11-16] MEDS: Heparin 5,000 UNITS/ML VIAL SC SCH ×3 (09:00→20:02)
[2021-11-16] MEDS ORDERED: Vancomycin HCl 500 MG in Sodium Chloride 0.9% 100 ML IVPB SCH (12:30)
[2021-11-16] MEDS ORDERED: Vancomycin HCl 750 MG in Sodium Chloride 0.9% 250 ML 250 ML IVPB SCH (12:30)
[2021-11-16] MEDS ORDERED: Vancomycin Sliding Scale 1 EACH FS ONE (12:30)
[2021-11-16] MEDS ORDERED: HOLD VANCOMYCIN FOR LEVEL >20 FS SCH (12:30)
[2021-11-16] MEDS ORDERED: Vancomycin HCl 1.25 GM in Sodium Chloride 0.9% 250 ML 250 ML IVPB SCH (12:30)
[2021-11-16] MEDS ORDERED: PROPOFOL 40 ML ONE (14:24)
[2021-11-16] MEDS ORDERED: Fentanyl 250 MCG/5 ML VIAL ONE (14:24)
[2021-11-16] MEDS ORDERED: Bupivacaine 0.25% HCL 30 ML VIAL ONE (14:25)
[2021-11-16] MEDS ORDERED: Xylocaine 1% w/ Epi 1:100K 10 ML VIAL ONE (14:25)
[2021-11-16] MEDS ORDERED: PROPOFOL 200 MG/20 ML VIAL ONE (14:48)
[2021-11-16] MEDS ORDERED: Promethazine HCl 25 MG/ML VIAL IVPB PRN (15:45)
[2021-11-16] MEDS ORDERED: Ondansetron HCl/PF 4 MG/2 ML Vial IVP PRN (15:45)
[2021-11-16] MEDS ORDERED: Promethazine HCl 25 MG/ML VIAL IM PRN (15:45)
[2021-11-16] MEDS ORDERED: Metoprolol Tartrate 5 MG/5 ML VIAL ONE (16:43)
[2021-11-16] MEDS ORDERED: hydrALAZINE 20 MG/ML VIAL SLOW IVP PRN (17:02)
[2021-11-16] MEDS ORDERED: hydrALAZINE 20 MG/ML VIAL ONE (17:06)
[2021-11-16 19:51] LABS: Troponin I 0.218 ng/mL (< 0.028)
[2021-11-16] MEDS: Metoprolol Tartrate 50 MG TAB PO SCH (20:02)
[2021-11-16] MEDS: Atorvastatin Calcium 10 MG TAB PO SCH (20:02)
[2021-11-16] MEDS: Terazosin HCl 1 MG CAP PO SCH (20:02)
[2021-11-16] MEDS ORDERED: Cefepime 2 GM in Sodium Chloride 0.9% 100 ML IVPB SCH (21:00)
[2021-11-16 23:20] LABS: Troponin I 0.205 ng/mL (< 0.028)
[2021-11-16] MEDS: metroNIDAZOLE 500 MG in Premix Bag 1 BAG IVPB SCH (23:46)
[2021-11-17 01:37] LABS: Troponin I 0.193 ng/mL (< 0.028)
[2021-11-17] MEDS ORDERED: HYDROcodone/Acetaminophen 5/325 mg Tablet PO PRN (02:45)
[2021-11-17] MEDS ORDERED: Acetaminophen 325 MG TAB PO PRN (02:46)
[2021-11-17 05:10] LABS: #Basophils 0.1 thou/uL (0.0-0.2); #Eosinphils 0.8 thou/uL (0.0-0.7); #Lymphocytes 1.4 thou/uL (1.20-3.40); #Monocytes 0.9 thou/uL (0.11-0.59); #Neutrophils 4.3 thou/uL (1.40-6.50); %Basophils 1.1 % (0.0-1.0); %Eosinophils 10.6 % (0.0-10.0); %Lymphocytes 18.9 % (21.0-51.0); %Monocytes 11.6 % (0.0-10.0); %Neutrophils 57.7 % (42.0-75.0); Hemoglobin 10.3 g/dL (14.0-18.0); Mean Corpuscular HGB CONC 31.6 g/dL (32.0-36.0); Mean Corpuscular Hemoglobin 26.9 pg (27.0-31.0); Platelet Count 277 thou/uL (130-400); Red Blood Cell (RBC) Count 3.82 mill/uL (4.70-6.10); White Blood Cell (WBC) Count 7.5 thou/uL (4.8-10.8)
[2021-11-17 05:31] LABS: Anion Gap 24 mmol/L (10-20); BUN (Urea Nitrogen) 90 mg/dL (8.4-25.7); Calc. Creatinine Clearance 5 mL/min (70-130); Calcium 9.1 mg/dL (7.8-10.44); Carbon Dioxide 18 mmol/L (23-31); Chloride 97 mmol/L (98-107); Glucose 74 mg/dL (80-115); Potassium 3.9 mmol/L (3.5-5.1); Sodium 135 mmol/L (136-145)
[2021-11-17] MEDS: metroNIDAZOLE 500 MG in Premix Bag 1 BAG IVPB SCH ×3 (06:09→19:25)
[2021-11-17 07:33] LABS: Vancomycin, Trough 40.4 ug/mL
[2021-11-17] MEDS: Calcitriol 0.25 MCG CAP PO SCH (08:54)
[2021-11-17] MEDS: HYDROcodone/Acetaminophen 5/325 mg Tablet PO PRN ×2 (08:55→20:47)
[2021-11-17] MEDS: Sevelamer Carbonate 800 MG TAB PO SCH ×3 (08:55→16:26)
[2021-11-17] MEDS: Heparin 5,000 UNITS/ML VIAL SC SCH ×3 (08:55→20:41)
[2021-11-17] MEDS: Metoprolol Tartrate 50 MG TAB PO SCH ×3 (08:56→20:41)
[2021-11-17] MEDS ORDERED: Metoprolol Tartrate 5 MG/5 ML VIAL IVP PRN (12:53)
[2021-11-17] MEDS: Atorvastatin Calcium 10 MG TAB PO SCH (20:41)
[2021-11-17] MEDS: Terazosin HCl 1 MG CAP PO SCH (20:42)
[2021-11-17] MEDS ORDERED: Cefepime 1 GM in Sodium Chloride 0.9% 100 ML IVPB SCH (21:00)
[2021-11-18] MEDS: metroNIDAZOLE 500 MG in Premix Bag 1 BAG IVPB SCH ×4 (00:13→18:27)
[2021-11-18] MEDS: HYDROcodone/Acetaminophen 5/325 mg Tablet PO PRN ×2 (01:08→08:03)
[2021-11-18 05:16] LABS: #Basophils 0.1 thou/uL (0.0-0.2); #Eosinphils 0.8 thou/uL (0.0-0.7); #Lymphocytes 1.4 thou/uL (1.20-3.40); #Neutrophils 3.6 thou/uL (1.40-6.50); %Basophils 0.9 % (0.0-1.0); %Eosinophils 11.9 % (0.0-10.0); %Lymphocytes 20.1 % (21.0-51.0); %Monocytes 14.7 % (0.0-10.0); %Neutrophils 52.4 % (42.0-75.0); Hemoglobin 10.3 g/dL (14.0-18.0); Mean Corpuscular HGB CONC 32.2 g/dL (32.0-36.0); Mean Corpuscular Hemoglobin 27.6 pg (27.0-31.0); Mean Corpuscular Volume 85.5 fL (78.0-98.0); Mean Platelet Volume 7.9 fL (7.4-10.4); Platelet Count 246 thou/uL (130-400); Red Blood Cell (RBC) Count 3.72 mill/uL (4.70-6.10); White Blood Cell (WBC) Count 6.8 thou/uL (4.8-10.8)
[2021-11-18 05:40] LABS: Anion Gap 18 mmol/L (10-20); BUN (Urea Nitrogen) 43 mg/dL (8.4-25.7); Calc. Creatinine Clearance 7 mL/min (70-130); Calcium 8.9 mg/dL (7.8-10.44); Carbon Dioxide 24 mmol/L (23-31); Chloride 98 mmol/L (98-107); Glucose 71 mg/dL (80-115); Potassium 3.6 mmol/L (3.5-5.1); Sodium 136 mmol/L (136-145)
[2021-11-18] MEDS: Calcitriol 0.25 MCG CAP PO SCH (08:02)
[2021-11-18] MEDS: Sevelamer Carbonate 800 MG TAB PO SCH ×4 (08:04→19:40)
[2021-11-18] MEDS: Metoprolol Tartrate 50 MG TAB PO SCH ×2 (08:04→20:58)
[2021-11-18] MEDS: Heparin 5,000 UNITS/ML VIAL SC SCH ×3 (08:04→20:58)
[2021-11-18 08:39] LABS: Vancomycin, Random 30.6 ug/mL (See Comment)
[2021-11-18] MEDS ORDERED: Lactated Ringer's 500 ML IV SCH (16:30)
[2021-11-18] MEDS: Atorvastatin Calcium 10 MG TAB PO SCH (20:58)
[2021-11-18] MEDS: Terazosin HCl 1 MG CAP PO SCH (20:59)
[2021-11-19] MEDS: metroNIDAZOLE 500 MG in Premix Bag 1 BAG IVPB SCH ×2 (00:04→06:05)
[2021-11-19 04:38] LABS: #Basophils 0.1 thou/uL (0.0-0.2); #Eosinphils 0.9 thou/uL (0.0-0.7); #Lymphocytes 1.3 thou/uL (1.20-3.40); #Neutrophils 3.9 thou/uL (1.40-6.50); %Basophils 0.8 % (0.0-1.0); %Eosinophils 12.3 % (0.0-10.0); %Lymphocytes 18.3 % (21.0-51.0); %Monocytes 13.9 % (0.0-10.0); %Neutrophils 54.7 % (42.0-75.0); Mean Corpuscular HGB CONC 31.9 g/dL (32.0-36.0); Mean Corpuscular Hemoglobin 27.4 pg (27.0-31.0); Mean Corpuscular Volume 85.8 fL (78.0-98.0); Platelet Count 241 thou/uL (130-400); Red Blood Cell (RBC) Count 3.64 mill/uL (4.70-6.10)
[2021-11-19 05:00] LABS: Anion Gap 18 mmol/L (10-20); BUN (Urea Nitrogen) 54 mg/dL (8.4-25.7); Calc. Creatinine Clearance 6 mL/min (70-130); Calcium 9.2 mg/dL (7.8-10.44); Carbon Dioxide 23 mmol/L (23-31); Chloride 98 mmol/L (98-107); Glucose 68 mg/dL (80-115); Potassium 3.9 mmol/L (3.5-5.1); Sodium 135 mmol/L (136-145)
[2021-11-19 08:22] LABS: Vancomycin, Random 27.7 ug/mL (See Comment)
[2021-11-19] MEDS: Calcitriol 0.25 MCG CAP PO SCH (09:24)
[2021-11-19] MEDS: Sevelamer Carbonate 800 MG TAB PO SCH ×3 (09:24→18:17)
[2021-11-19] MEDS: Metoprolol Tartrate 50 MG TAB PO SCH ×2 (09:33→21:17)
[2021-11-19] MEDS: Heparin 5,000 UNITS/ML VIAL SC SCH ×3 (10:35→21:17)
[2021-11-19] MEDS ORDERED: diphenhydrAMINE 25 MG CAP PO PRN (16:34)
[2021-11-19] MEDS ORDERED: metroNIDAZOLE 500 MG in Premix Bag 1 BAG IVPB SCH (18:00)
[2021-11-19] MEDS: Terazosin HCl 1 MG CAP PO SCH (21:16)
[2021-11-19] MEDS: Atorvastatin Calcium 10 MG TAB PO SCH (21:17)
[2021-11-20 05:47] LABS: Anion Gap 13 mmol/L (10-20); BUN (Urea Nitrogen) 23 mg/dL (8.4-25.7); Calc. Creatinine Clearance 10 mL/min (70-130); Calcium 9.2 mg/dL (7.8-10.44); Carbon Dioxide 30 mmol/L (23-31); Chloride 97 mmol/L (98-107); Glucose 86 mg/dL (80-115); Potassium 3.6 mmol/L (3.5-5.1); Sodium 136 mmol/L (136-145)
[2021-11-20 05:56] LABS: Eosinophils 10 % (0-10); Hemoglobin 9.7 g/dL (14.0-18.0); Lymphocytes 13 % (21-51); MDiff Complete? YES; Mean Corpuscular Hemoglobin 27.2 pg (27.0-31.0); Mean Corpuscular Volume 87.7 fL (78.0-98.0); Mean Platelet Volume 7.8 fL (7.4-10.4); Monocytes 13 % (0-10); Neutrophil 64 % (42-75); Platelet Count 230 thou/uL (130-400); Platelet Morphology Comment Appears Adequate; RBC Distribution Width 15.9 % (11.5-14.5); RBC Morphology Normal; Red Blood Cell (RBC) Count 3.56 mill/uL (4.70-6.10); White Blood Cell (WBC) Count 7.4 thou/uL (4.8-10.8)
[2021-11-20] MEDS: Calcitriol 0.25 MCG CAP PO SCH (07:46)
[2021-11-20] MEDS: Sevelamer Carbonate 800 MG TAB PO SCH (07:46)
[2021-11-20] MEDS: Heparin 5,000 UNITS/ML VIAL SC SCH (07:46)
[2021-11-20] MEDS: Metoprolol Tartrate 50 MG TAB PO SCH (07:47)
[2021-11-20 08:31] VITALS: BP 158/91; TEMP 98.4
== END 2021-11-20 10:57 | disposition home or self-care (01) | DRG 308 ==
LOC: 2SW 23:32 → OBSVTOIN 11-16 13:53
PROVIDERS: ADMIT Student in an Organized Health Care Education/Training Program; ATTEND Internal Medicine
PROC: 0JPT3XZ Removal of Tunneled Vascular Access Device from Trunk Subcutaneous Tissue and Fascia, Percutaneous Approach (ICD-10-PCS; principal; 2021-11-17)
PROC: 0WPGX3Z Removal of Infusion Device from Peritoneal Cavity, External Approach (ICD-10-PCS; 2021-11-17)
PROC: 5A1D70Z Performance of Urinary Filtration, Intermittent, Less than 6 Hours Per Day (ICD-10-PCS; 2021-11-17)
PROC: 5A1D70Z Performance of Urinary Filtration, Intermittent, Less than 6 Hours Per Day (ICD-10-PCS; 2021-11-17)
DX: I47.1 Supraventricular tachycardia (principal); N18.6 End stage renal disease; I13.2 Hypertensive heart and chronic kidney disease with heart failure and with stage 5 chronic kidney disease, or end stage renal disease; I50.9 Heart failure, unspecified; E78.00 Pure hypercholesterolemia, unspecified; I70.209 Unspecified atherosclerosis of native arteries of extremities, unspecified extremity; N30.90 Cystitis, unspecified without hematuria; D63.1 Anemia in chronic kidney disease; Z86.73 Personal history of transient ischemic attack (TIA), and cerebral infarction without residual deficits; Z79.899 Other long term (current) drug therapy
CPT/HCPCS: 36415; 36416; 80048; 80202; 84484; 85025; 87040; 87070; 87205; 90935; 93005; 93010; 93306; 96374; 96375; G0257; G0378; J0360; J0692; J1644; J2704; J3010; J3370; J3490; J7120; Q0162; S0020

== ENCOUNTER 2022-11-06 12:20 | Outpatient (CLI) | payer MEDICARE | END 2022-11-06 12:21 | disposition home or self-care (01) | LOC: BICRAD 12:20 | PROVIDERS: ATTEND Podiatrist | DX: M79.672 Pain in left foot (principal); M79.9 Soft tissue disorder, unspecified ==

== ENCOUNTER 2023-06-06 13:17 | Outpatient (CLI) | payer OTHER | END 2023-06-06 13:18 | disposition home or self-care (01) | LOC: BICRAD 13:17 | DX: M54.50 Low back pain, unspecified (principal); M47.816 Spondylosis without myelopathy or radiculopathy, lumbar region; M41.9 Scoliosis, unspecified | CPT/HCPCS: 72100 ==